=== PATIENT | female | born 1935 | race Caucasian/White ===

== ENCOUNTER 2020-06-30 13:22 | Emergency (ER) | payer MEDICARE, SELFPAY ==
[2020-06-30 13:30] VITALS: BP 119/67; PULSE 50; RESP 17; TEMP 36.3; O2SAT 98; BMI 22.2
--- NOTE | 2020-06-30 13:51 | EKG12_ITS ---
Test Reason : ABD PAIN Blood Pressure : / mmHG Vent. Rate : 085 BPM Atrial Rate : 085 BPM P-R Int : 252 ms QRS Dur : 088 ms QT Int : 398 ms P-R-T Axes : 005 -29 076 degrees QTc Int : 473 ms Sinus rhythm with 1st degree A-V block with frequent Premature ventricular complexes Septal infarct , age undetermined Abnormal ECG Confirmed by BHUMI MELCHOR, HERACLIO ([id number]), brands editor BASIA JANE ([id number]) on 07/02/2020 10:55:15 AM Referred By: NINO Confirmed By:HERACLIO TRIPATHI MD
--- NOTE | 2020-06-30 13:53 | CT_ITS ---
STUDY: CT ABDOMEN AND PELVIS WITH CONTRAST REASON FOR EXAM: Female, 85 years old. RUQ PAIN, DISTENTION, SOB, HX APPENDECTOMY, HX BREAST CA-BILAT MASTECTOMY RADIATION DOSAGE (If Supplied By Facility): CTDIvol = ( 18.44 ) mGy, DLP = ( 1251.03 ) mGycm TECHNIQUE: Transaxial images were obtained from the dome of the diaphragm to the symphysis pubis without oral contrast. IV 75mL Isovue-370 was administered. Sagittal and coronal images were reconstructed. Individualized dose optimization techniques were used for this CT. COMPARISON: None. FINDINGS: The patient is status post right mastectomy. A left-sided breast prosthesis is seen. The visualized lung bases are unremarkable. The visualized portions of the heart are within normal limits. Normal liver. Findings suggestive of a small gallstones. Normal spleen. Normal pancreas. Normal bilateral adrenal glands. Cortical thinning of both kidneys. Normal visualized stomach. Normal small intestine. A large amount of fecal material is seen in the rectosigmoid colon. The patient is status post appendectomy. There is diffuse atherosclerotic calcification of the abdominal aorta and the major visceral branches, without a demonstrated aneurysm. Normal inferior vena cava. Normal retroperitoneum. Normal urinary bladder. Normal abdominal wall. There are diffuse degenerative changes of the visualized lumbar spine. Dextroscoliosis. Prior bilateral total hip replacement. CT/Abdomen/Pelvis W IV Cont ONLY IMPRESSION: Findings suggestive of a small gallstones. Large amount of fecal material is seen in the rectosigmoid colon. Bilateral thinning of the renal cortices. Electronically Signed: Faustino Castano, at 15:43 EDT , Service support ,
--- NOTE | 2020-06-30 13:54 | CT_ITS ---
STUDY: CTA CHEST REASON FOR EXAM: Female, 85 years old. RUQ PAIN, DISTENTION, SOB, HX APPENDECTOMY, HX BREAST CA-BILAT MASTECTOMY RADIATION DOSAGE (If Supplied By Facility): CTDIvol = ( 18.44 ) mGy, DLP = ( 1251.03 ) mGycm TECHNIQUE: The examination was performed with the intravenous administration of IV 75mL Isovue-370. Post-processing of the angiographic images was performed, with multiplanar reformation and 3D reconstruction. Individualized dose optimization techniques were used for this CT. COMPARISON: None. FINDINGS: Status post right mastectomy. Left breast implant. Normal enhancement of the main pulmonary artery and right and left pulmonary arteries. Normal enhancement of the bilateral peripheral pulmonary arteries. There is no demonstrated pulmonary embolism. There is atherosclerotic calcification of the aortic arch with tortuosity. There is no demonstrated aortic dissection. There is cardiomegaly. Left atrial enlargement. Normal mediastinum. Normal hilar regions. Normal visualized trachea and bronchi. The lungs are well expanded. Increased linear markings at the lung bases with bronchiectasis suggestive of scarring. Normal pleura. Normal chest wall structures. There are degenerative changes of thoracic spine. Dextroscoliosis. Osteopenia with loss of height of multiple dorsal vertebrae. Questionable small gallstones. CT/CTA Chest W/WO Contrast IMPRESSION: No evidence of pulmonary embolism. Cardiomegaly with enlargement of the left atrium. Scarring at the lung bases with bronchiectasis. Questionable small gallstones. Electronically Signed: Faustino Castano, at 15:49 EDT , Service support ,
--- NOTE | 2020-06-30 14:04 | NURSING ---
NO OLD EKGS
[2020-06-30 14:40] LABS: Absolute Neutrophil Count 6.2 X10^3/uL (2.0-7.7); Basophil# 0.03 X10^3/uL; Basophil% 0.4 % (0-1); Eosinophil# 0.06 X10^3/uL; Eosinophils% 0.7 % (0-5); Hematocrit 39.3 % (37-47); Hemoglobin 12.1 g/dL (12.0-15.0); Lymphocyte % 17.7 % (19-41); Mean Corp Hgb Conc 30.8 g/dL (32-36); Mean Corpuscular Volume 84.3 fL (81-99); Mean Platelet Vol. 11.5 fl (6.2-12.0); Monocyte# 0.69 X10^3/uL; Monocyte% 8.1 % (0-10); NRBC Flagged by Analyzer 0 % (0-5); Neutrophil # 6.16 X10^3/uL (2.7-7.7); Neutrophil % 72.7 % (47-70); Platelet Count 200 K/mm3 (150-450); RBC Distribution Width CV 14.6 % (11.6-14.6); RBC Distribution Width SD 43.9 fl (35.1-43.9); Red Blood Count 4.66 M/mm3 (4.2-5.4); White Blood Count 8.5 K/mm3 (4.4-11.0)
--- NOTE | 2020-06-30 14:41 | ED.DCSUM_ITS ---
History of Present Illness <Girish Herbert - Last Filed: 06/30/20 16:58> Informant: Patient, Family Narrative: Patient is an 85-year-old female who presents to the emergency department for right upper quadrant swelling and pain. The majority of the history is provided by the niece who is the POA. The patient does not have any formal diagnosis of dementia but this is a concern currently. She has had this going off and on for the past couple of months with abdominal swelling. She has fluctuated between some constipation and diarrhea. She has followed with her PCP for this. If she had constipation for 3 days she was post receive an enema. It has never came down to having to get this. The patient started to complain of shortness of breath today. She also states that she was going to throw up. She does not really complain of pain usually. She has not had any episodes of vomiting. No fevers that the family has known of. She has had some foul-smelling urine. She was treated for urinary tract infection over the past couple weeks. At this current time patient does not have any complaints. The abdomen is swollen. She does have a history of appendectomy, hysterectomy. <Stu Phillip - Last Filed: 07/01/20 15:58> Chief Complaint: Abd Pain Past Medical History <Girish Herbert - Last Filed: 06/30/20 16:58> Past Medical History: - - Hypertension Surgical History: appendectomy, hysterectomy Lives: With Family <MarjanStu - Last Filed: 07/01/20 15:58> - Allergies and Home Meds Allergies/Adverse Reactions: Allergies acetaminophen [From Vicodin] Allergy (Verified 06/30/20 13:29) UNKNOWN chocolate flavor Allergy (Verified 06/30/20 13:29) Anaphylaxis codeine Allergy (Verified 06/30/20 13:29) UNKNOWN hydrocodone [From Vicodin] Allergy (Verified 06/30/20 13:29) UNKNOWN naproxen Allergy (Verified 06/30/20 13:29) UNKNOWN Penicillins Allergy (Verified 06/30/20 13:29) UNKNOWN Sulfa (Sulfonamide Antibiotics) Allergy (Verified 06/30/20 13:29) EDEMA STEROIDS Allergy (Uncoded 06/30/20 13:29) EDEMA Primary Care Physician: Cortes Reddy MD [Primary Care Provider] - 3-5 Days Review of Systems All systems negative except as indicated General: Denies: Chills, Fever ENT: Denies: Bilateral ear pain Cardiovascular: Denies: Chest pain Respiratory: Reports: Dyspnea - Currently resolved Gastrointestinal: Reports: Abdominal pain, Nausea, Diarrhea Genitourinary: Denies: Hematuria Skin: Denies: Rash Neurological: Denies: Headache <Stu Phillip - Last Filed: 07/01/20 15:58> Physical Exam Vital Signs/Narrative: Vital Signs Temp Pulse Resp BP Pulse Ox 06/30/20 13:30 97.3 F L 50 L 17 119/67 98 <Girish Herbert - Last Filed: 06/30/20 16:58> Vital Signs/Narrative: Vital Signs Temp Pulse Resp BP Pulse Ox 06/30/20 13:30 97.3 F L 50 L 17 119/67 98 Inital Vital Signs reviewed: Yes General: Well nourished, Well developed, No Acute Distress Head: Normocephalic, Atraumatic Eyes: Perrl, EOMI ENT: Moist mucous membranes Neck: Supple, Nontender Cardiovascular: Regular rate, Regular rhythm, Irregular. Negative for: No murmurs Respiratory: No distress, CTA bilaterally Abdomen: Soft, Tender - Patient is tender but the family states that her typical reaction is to say ouch to everything. No active guarding. No rebound. Abdomen is distended mostly in the right upper quadrant. Back: Nontender, Normal Inspection Extremities: Tenderness, Edema - 1+ pitting edema to bilateral lower extremities Skin: Normal color, No rash Neurological: Alert, Cranial nerves II-XII grossly intact <Stu Phillip - Last Filed: 07/01/20 15:58> Diagnostic/Tx/Re-eval Impressions Abdomen/Pelvis CT 06/30/20 13:53 IMPRESSION: Findings suggestive of a small gallstones. Large amount of fecal material is seen in the rectosigmoid colon. Bilateral thinning of the renal cortices. Electronically Signed: Faustino Castano, at 15:43 EDT , Service support , Chest CTA 06/30/20 13:54 IMPRESSION: No evidence of pulmonary embolism. Cardiomegaly with enlargement of the left atrium. Scarring at the lung bases with bronchiectasis. Questionable small gallstones. Electronically Signed: Faustino Castano, at 15:49 EDT , Service support , 06/30/20 13:53 CT Abd [Abdomen/Pelvis W IV Cont ONLY] [CT] Stat 06/30/20 13:54 CTA Chest W/WO Contrast [CT] Stat Laboratory Results 06/30/20 06/30/20 06/30/20 14:30 14:30 15:55 WBC 8.5 RBC 4.66 Hgb 12.1 Hct 39.3 MCV 84.3 MCH 26.0 L MCHC 30.8 L RDW Std Deviation 43.9 RDW Coeff of Tank 14.6 Plt Count 200 MPV 11.5 Immature Gran % (Auto) 0.400 Neut % (Auto) 72.7 H Lymph % (Auto) 17.7 L [place] % (Auto) 8.1 Eos % (Auto) 0.7 Baso % (Auto) 0.4 Absolute Neuts (auto) 6.2 Absolute Lymphs (auto) 1.50 Nucleated RBC % 0 Sodium 141 Potassium 4.1 Chloride 108 H Carbon Dioxide 30.0 Anion Gap 3 L BUN 16 Creatinine 0.86 Estim Creat Clear Calc 45.59 Est GFR (MDRD) Af Amer 81 Est GFR (MDRD) Non-Af 67 BUN/Creatinine Ratio 18.6 Glucose 101 Calcium 8.8 Total Bilirubin 0.50 AST 26 ALT 19 Alkaline Phosphatase 89 Troponin I 0.041 Total Protein 6.8 Albumin 3.1 L Globulin 3.7 Albumin/Globulin Ratio 0.8 L Lipase 166 Urine Color Yellow Urine Clarity Cloudy Urine pH 6.5 Ur Specific [place] 1.010 Urine Protein Negative Urine Glucose (UA) Normal Urine Ketones Negative Urine Occult Blood 10 H Urine Nitrite Positive H Urine Bilirubin Negative Urine Urobilinogen Normal Ur Leukocyte Esterase 500 H Urine RBC 0-5 SEEN Urine WBC 25-50 SEEN Ur Squamous Epith Cells 0-5 SEEN Urine Bacteria RARE Urine Mucus 0 SEEN - Medical Decision Making Patient checked out to me. She is doing well. I examined her, she does have some asymmetric swelling on the right upper area of the abdomen, it is soft, easily compressible, nontender to the patient throughout this area with deep palpation. In reviewing the scan, it appears that some of the ribs seem to curve inward toward the center of the body, and there is some bowel and abdominal wall soft tissue that is external to the lowermost right anterior ribs. I think this is causing the asymmetry. I discussed with Dr. Castano who read the scan, who states this does not represent a hernia. Rather, her scoliosis is so severe, and she may or may not have had an old rib fracture here, to cause deformity of some of the ends of the ribs, but that is contributing to the asymmetry. I reassured the family that this is not at risk for obstruction based on this and the incidental possible small gallstones are incidental and not causing any of this. Additionally she has a urinary tract infection, start her on Keflex for that and sent a culture, she knows to follow- up. <Girish Herbert - Last Filed: 06/30/20 16:58> - EKG Initial EKG Interpretation: - - Rate of 85 bpm in a sinus rhythm. There are multiple PVCs present. NE interval of 252 with first-degree AV block. No significant ST elevations or depressions appreciated. No prior EKG for comparison. - Medical Decision Making Patient presents emergency department for swelling of her right upper quadrant. She was complaining of some abdominal pain nausea and shortness of breath. Currently all of these complaints are resolved except for the distention. This has been an acute on chronic problem for her. Given the fact I cannot perform a great exam given her dementia and not relieved answering questions we will do a full work-up with lab work and CT imaging. Has been complaining of dyspnea so we will do CT scan of the chest. With the asymmetrical swelling of the right upper quadrant will do CT scan of the abdomen/pelvis. So far lab work-up not revealing any significant acute abnormality. Urine and imaging results are currently pending. Signing out to next physician given end of shift. Patient appears comfortable at time of signout and is in no distress. <Stu Phillip - Last Filed: 07/01/20 15:58> ED Disposition <Girish Herbert - Last Filed: 06/30/20 16:58> <Stu Phillip - Last Filed: 07/01/20 15:58> - Plan for ED Patient: Disposition: Home or Assisted Living Diagnosis: Abdominal distention, Dyspnea, UTI (urinary tract infection), Scoliosis Instructions: ED CYSTITIS Female Adult Prescriptions: Cephalexin [Keflex] 500 mg PO 4X/DAY #40 cap Transmission Status: Received by [id number] Referrals: Cortes Reddy MD [Primary Care Provider] - 3-5 Days Additional Instructions: A urine culture was sent and will take 2-3 days to return.
[2020-06-30 15:04] LABS: ALB/GLOB Ratio 0.8 RATIO (0.9-2.4); AST(SGOT) 26 U/L (15-37); Alanine Aminotransfer ALT/SGPT 19 U/L (13-56); Albumin, Serum 3.1 g/dL (3.2-5.0); Alkaline Phosphatase 89 U/L (45-117); Anion Gap 3 (5-15); BUN 16 mg/dL (7-18); BUN/Creat Ratio 18.6 RATIO (10-20); Calcium,Total 8.8 mg/dL (8.5-10.1); Chloride 108 mmol/L (98-107); Creatinine, Serum 0.86 mg/dL (0.55-1.02); EST Glomerular Filtration Rate 67 mL/min (>60); Est Glom Filt Rate - Afr Amer 81 mL/min (>60); Estimated Creatinine Clearance 45.59 ml/min; Globulin 3.7 g/dL (2.2-4.2); Glucose 101 mg/dL (74-106); Lipase 166 U/L (73-393); Potassium 4.1 mmol/L (3.5-5.1); Protein, Total 6.8 g/dL (6.4-8.2); Sodium Level 141 mmol/L (136-145)
[2020-06-30 15:59] LABS: Mucous, Urine 0 SEEN /hpf (<or=2+)
[2020-06-30 16:05] LABS: Color, Urine Yellow (Yellow); Glucose, Dipstick Normal (Normal); Ketone-Dipstick Negative (Negative); Leukocyte Esterase-Dipstick 500 /ul (Negative); Nitrite-Dipstick Positive (Negative); Occult Blood-Urine 10 /ul (Negative); Protein-Dipstick Negative (Negative); Urine Bilirubin Dipstick Negative (Negative); Urine Clarity Cloudy (Clear); Urine Urobilinogen Normal (Normal); Urine pH 6.5 (5.0 - 8.0)
[2020-06-30 16:11] LABS: White Blood Cells 25-50 SEEN /hpf (0-5)
[2020-06-30 16:12] LABS: Bacteria RARE /hpf (None Seen); Red Blood Cells-Urine 0-5 SEEN /hpf (0-5); Squamous Epithelial Cells - UA 0-5 SEEN /hpf (5-10)
[2020-06-30] MEDS: Cephalexin 250 MG Capsule 500 MG PO (17:44)
[2020-06-30 17:45] VITALS: BP 150/99; PULSE 73; RESP 18; O2SAT 100
== END 2020-06-30 17:56 | disposition home or self-care (01) ==
PROVIDERS: Emergency Provider Emergency Medicine; PCP Family Medicine
DX: R14.0 Abdominal distension (gaseous) (principal); R06.00 Dyspnea, unspecified; N39.0 Urinary tract infection, site not specified; M41.9 Scoliosis, unspecified; I44.0 Atrioventricular block, first degree; I49.3 Ventricular premature depolarization; I10 Essential (primary) hypertension; Z79.899 Other long term (current) drug therapy
CPT/HCPCS: 71275; 74177; 80053; 81001; 83690; 84484; 85025; 87086; 87186; 93005; 99283; Q9967; A4216